=== PATIENT | male | born 1975 | race African-American/Black ===

== ENCOUNTER 2016-10-19 09:11 | Emergency (ER) | payer SELFPAY ==
[~2016-10-19] VITALS: Ht 188 cm; Wt 93.1 kg
[2016-10-19 09:15] VITALS: BP 152/105
[2016-10-19] MEDS ORDERED: OXYcodone/APAP 5/325MG TABLET ONE (10:19)
[2016-10-19] MEDS ORDERED: OXYcodone/APAP 5/325MG TABLET PO ONE (10:30)
== END 2016-10-19 10:51 | disposition home or self-care (01) ==
LOC: ED 10:45
DX: S80.02XA Contusion of left knee, initial encounter (principal); S70.02XA Contusion of left hip, initial encounter; M19.90 Unspecified osteoarthritis, unspecified site; W10.9XXA Fall (on) (from) unspecified stairs and steps, initial encounter; Y93.01 Activity, walking, marching and hiking; Y92.89 Other specified places as the place of occurrence of the external cause; Y99.8 Other external cause status
CPT/HCPCS: 99284

== ENCOUNTER 2016-11-28 10:19 | Emergency (ER) | payer MEDICAID ==
[~2016-11-28] VITALS: Ht 188 cm; Wt 93.3 kg
[2016-11-28 10:26] VITALS: BP 188/97
[2016-11-28] MEDS ORDERED: KETOROLAC 30 MG/1 ML ONE (10:47)
[2016-11-28] MEDS ORDERED: KETOROLAC 30 MG/1 ML IM ONE (11:00)
== END 2016-11-28 11:56 | disposition home or self-care (01) ==
LOC: ED 11:27
DX: M25.552 Pain in left hip (principal); G89.29 Other chronic pain; M19.90 Unspecified osteoarthritis, unspecified site
CPT/HCPCS: 73502; 96372; 99284; J1885